=== PATIENT | male | born 1940 | race Caucasian/White ===

== ENCOUNTER 2016-08-08 08:13 | Day surgery (SDC) | payer MEDICARE, BC ==
[~2016-08-08 08:13] MED LIST: LIDOCAINE HCL 1% MPF SOL ONE; PROPOFOL 500 MG/50 ML EMU IV ONE
[2016-08-08 10:51] VITALS: BP 127/66; PULSE 47; RESP 18; TEMP 97.1; O2SAT 95
== END 2016-08-08 11:25 | disposition home or self-care (01) | DRG 951 ==
LOC: SURG 08:13
PROVIDERS: ATTEND Internal Medicine Gastroenterology
DX: Z12.11 Encounter for screening for malignant neoplasm of colon (principal); K64.8 Other hemorrhoids; Z80.0 Family history of malignant neoplasm of digestive organs; K57.30 Diverticulosis of large intestine without perforation or abscess without bleeding
CPT/HCPCS: J2001; J2704